=== PATIENT | female | born 2000 | race Caucasian/White ===

== ENCOUNTER 2024-05-12 13:27 | Outpatient (CLI) | payer OTHER, SELFPAY | END 2024-05-12 13:28 | disposition home or self-care (01) | LOC: NFLDREF 05-25 22:39 | DX: R10.31 Right lower quadrant pain (principal) | CPT/HCPCS: 87086 ==

== ENCOUNTER 2024-05-12 14:29 | Emergency (ER) | payer OTHER, SELFPAY ==
[2024-05-12 14:58] VITALS: BP 118/72; PULSE 75; RESP 18; TEMP 36.5; O2SAT 99; BMI 28.0
--- NOTE | 2024-05-12 15:18 | CRLHL7_ITS ---
For Patients: As a result of the Century Cures Act, medical imaging exams and procedure reports are released immediately into your electronic medical record. You may view this report before your referring provider. If you have questions, please contact your health care provider. INDICATION: RLQ PAIN, MID-ABDOMINAL PAIN TECHNIQUE: CT of the abdomen and pelvis was obtained with 88 mL of Isovue 370 intravenous contrast. Please note that all CT scans at this facility use dose modulation, iterative reconstruction, and/or weight-based dosing when appropriate to reduce radiation dose to as low as reasonably achievable. COMPARISON: None. FINDINGS: Lower thorax: Normal. Liver and biliary tree: Normal. Gallbladder: Normal. Spleen: Normal. Pancreas: Normal. Adrenal glands: Normal. Kidneys and ureters: No hydronephrosis. No obstructing renal calculi. Gastrointestinal tract: Normal appendix. Small to moderate stool burden. No evidence of bowel obstruction. Peritoneal cavity: Normal. Bladder: Normal. Pelvic organs: Normal. Vasculature: Normal. Lymph nodes: Normal. Abdominal wall: Normal. Musculoskeletal: Normal. IMPRESSION: 1. No acute intra-abdominal abnormality is seen. 2. Small to moderate stool burden. Please note that all CT scans at this facility use dose modulation, iterative reconstruction, and/or weight-based dosing when appropriate to reduce radiation dose to as low as reasonably achievable. Dictated by Nicola Restrepo MD @ 05/12/2024 4:31:34 PM (Electronically Signed)
--- NOTE | 2024-05-12 17:03 | ED.GENADULT ---
HPI - General Adult General Date Seen: 05/12/24 Chief complaint: Abdominal Pain Stated complaint: possible appendicitis Time Seen by Provider: 05/12/24 15:17 History of Present Illness HPI narrative: Patient is a 23-year-old young woman sent here from urgent care for evaluation of possible appendicitis. She tells me that she started developed nausea couple of days ago and then developed some abdominal pain yesterday that is primarily above her umbilicus but radiates a little bit to the right abdomen. She has had some continued nausea she says she has vomited a couple of times but it was just clear liquid. She has not had diarrhea, denies constipation, urinary symptoms, vaginal bleeding or discharge, new sexual partners. She says her periods are regular and last 1 was about 3 weeks ago. She notes fevers at home up to about 100. Denies sore throat or respiratory symptoms. Related Data Home Medications ?Medication ?Instructions ?Recorded ?Confirmed norelgestromin 150 mcg-e.estradiol 1 patch topical 05/12/24 05/12/24 35 mcg/24 hr weekly transderm patch (Xulane) Allergies Allergy/AdvReac Type Severity Reaction Status Date / Time No Known Drug Allergies Allergy Verified 05/12/24 15:49 Review of Systems Status of ROS: Reports: 10 or more systems reviewed and unremarkable except as noted in History and below [facility] Social History Non-prescribed substance use: denies use service: No Exam Narrative: Exam Narrative: Vital signs reviewed In general, alert, nontoxic young woman. She looks comfortable. Breathing easily. Head: Normocephalic, atraumatic. Eyes: Sclera clear. Pupils equal and reactive. ENT: Mucous membranes moist. Neck: Supple without adenopathy. Heart: Regular rate and rhythm without murmur. Lungs: Clear. No increased work of breathing, crackles or wheezes. No CVA tenderness. Abdomen: Abdomen is soft, nondistended. She does not have any tenderness to palpation although she says she has a little ?discomfort in the right mid abdomen. She does not have any tenderness at McBurney's point, negative Lopez sign. No rebound guarding or rigidity. Extremities: Well perfused, pulses intact. No significant edema. Neurologic: Alert, conversant. Speech fluent, face symmetric. Moves all extremities equally. Skin: Warm, dry well perfused. Affect: Flat. Const: Vital Signs, click to edit/add: Vital Signs - 24 hr 05/12/24 14:58 Temperature 97.7 F Pulse Rate [Pulse Oximeter] 75 Respiratory Rate 18 Blood Pressure [Ri ght Upper Arm] 118/72 Pulse Oximetry 99 Oxygen Delivery Me thod Room Air Documenting provider has reviewed patient's vital signs: yes Course Course ED Course: Patient was referred here from urgent care for rule out appendicitis. Based on her exam I do not have significant suspicion for appendicitis, blood work was done at Urgent Care, white blood cell count was mildly elevated. I did order a CT scan while she was in triage, based on report from Urgent Care, so this was done prior to my seeing her. My review of the CT scan is no evidence of appendicitis. Gallbladder looks normal, kidneys look normal. Radiology reads her CT as no acute abnormality, small to moderate stool burden. She had a UA at urgent care which was negative. She had a test which was negative. I have added on some labs here including COVID and influenza as well as strep given reported fevers at home. I have also checked LFTs, lipase, CRP. These are pending. She denies need for anything for pain or nausea right now. Labs are all normal here. I reviewed all of this with her. She is somewhat tearful, I asked her what was going on and she said she is ?just tired of feeling like this. She says the primary thing bothering her is the nausea. Reviewed that we can certainly treat that at home with Zofran as she does feel improved here with a dose of Zofran. If she continues to have significant symptoms would recommend primary care in the next few days to week. Reviewed reasons to return such as severe uncontrolled pain, new symptoms such as high fevers, bloody stools, uncontrolled vomiting or other worsening. I prescribed Zofran for home use from [facility]. Vital Signs Vital signs: Initial Vital Signs Temperature 97.7 F 05/12/24 14:58 Temperature Source Temporal Artery Scan 05/12/24 14:58 Pulse Rate 75 05/12/24 14:58 Pulse Rhythm Regular 05/12/24 14:58 Respiratory Rate 18 05/12/24 14:58 Blood Pressure 118/72 05/12/24 14:58 Blood Pressure Mean 87 05/12/24 14:58 Blood Pressure Position Sitting 05/12/24 14:58 Pulse Oximetry 99 05/12/24 14:58 Oxygen Delivery Method Room Air 05/12/24 14:58 Vital Signs Temperature 97.7 F 05/12/24 14:58 Pulse Rate 75 05/12/24 14:58 Respiratory Rate 18 05/12/24 14:58 Blood Pressure 118/72 05/12/24 14:58 Pulse Oximetry 99 05/12/24 14:58 Oxygen Delivery Method Room Air 05/12/24 14:58 Temperature 97.7 F 05/12/24 14:58 Pulse Rate 75 05/12/24 14:58 Respiratory Rate 18 05/12/24 14:58 Blood Pressure 118/72 05/12/24 14:58 Pulse Oximetry 99 05/12/24 14:58 Oxygen Delivery Method Room Air 05/12/24 14:58 Medications Administered Medications: Discontinued Medications Generic Name Dose Route Start Last Admin Trade Name Freq PRN Reason Stop Dose Admin Ondansetron HCl 4 mg 05/12/24 18:45 05/12/24 18:51 Ondansetron 2 Mg/Ml Inj IVP 05/12/24 18:46 4 mg ONCE ONE Administration Medical Decision Making Lab Data Labs: Lab Results 05/12/24 Range/Units 17:20 Sodium 133 L (135-149) mmol/L Potassium 3.9 (3.6-5.1) mmol/L Chloride 103 (96-114) mmol/L Carbon Dioxide 24 (20-32) mmol/L Anion Gap 6 L (7-15) mEq/L BUN 8 (5-24) mg/dL Creatinine 0.6 (0.5-1.5) mg/dL Estimated Creat Clear 140.60 Estimated GFR 128 ml/min Glucose 82 (60-115) mg/dL Calcium 9.1 (8.4-10.6) mg/dL Total Bilirubin 0.8 (0.1-1.5) mg/dL Direct Bilirubin 0.3 (0.0-0.5) mg/dL AST 18 (12-35) U/L ALT 12 (4-35) U/L Alkaline Phosphatase 100 (40-150) U/L C-Reactive Protein 1.2 H (0.5-1.0) mg/dL Total Protein 7.4 (6.0-8.3) g/dL Albumin 4.1 (3.3-5.0) g/dL Lipase 30 (23-300) U/L SARS-CoV-2 (PCR) Negative SARS-CoV-2 (Negative) Influenza Type A (PCR) Negative PCR FLU A (Negative) Influenza Type B (PCR) Negative PCR FLU B (Negative) RSV (PCR) Negative PCR RSV (Negative) Group A Strep DNA NOT DETECTED (Not Detectd) Imaging Data CT scan - abdomen: Attestation: I have reviewed the pertinent imaging results. Radiologist's impression: Patient: Carroll Lugo MR#: [id number] : 2000 Acct:[id number] Loc: ED Service Date: 05/12/[address]: Ordering Physician: Neelima Lopez M.D. Date of Service: 05/12/24 Procedure(s): CT abdomen pelvis w con Accession Number(s): [id number] cc: Neelima Lopez M.D.; Provider,Not a Local~ For Patients: As a result of the Cures Act, medical imaging exams and procedure reports are released immediately into your electronic medical record. You may view this report before your referring provider. If you have questions, please contact your health care provider. INDICATION: RLQ PAIN, MID-ABDOMINAL PAIN TECHNIQUE: CT of the abdomen and pelvis was obtained with 88 mL of Isovue 370 intravenous contrast. Please note that all CT scans at this facility use dose modulation, iterative reconstruction, and/or weight-based dosing when appropriate to reduce radiation dose to as low as reasonably achievable. COMPARISON: None. FINDINGS: Lower thorax: Normal. Liver and biliary tree: Normal. Gallbladder: Normal. Spleen: Normal. Pancreas: Normal. Adrenal glands: Normal. Kidneys and ureters: No hydronephrosis. No obstructing renal calculi. Gastrointestinal tract: Normal appendix. Small to moderate stool burden. No evidence of bowel obstruction. Peritoneal cavity: Normal. Bladder: Normal. Pelvic organs: Normal. Vasculature: Normal. Lymph nodes: Normal. Abdominal wall: Normal. Musculoskeletal: Normal. IMPRESSION: 1. No acute intra-abdominal abnormality is seen. 2. Small to moderate stool burden. Please note that all CT scans at this facility use dose modulation, iterative reconstruction, and/or weight-based dosing when appropriate to reduce radiation dose to as low as reasonably achievable. Dictated by Nicola Restrepo MD @ 05/12/2024 4:31:34 PM Discharge Plan Discharge Clinical Impression: Abdominal pain Patient Disposition: Home, Self-Care Condition: Stable Instructions: Abdominal Pain (ED) Additional Instructions: You can use Zofran up to 3 times a day as needed for nausea. If you are not improving over the next few days, follow-up with primary care. Our clinic number is [phone] if you would like to schedule with 1 of our doctors. If at any time you have severe uncontrolled pain, high fevers, uncontrolled vomiting, bloody stools or other worsening, return to the emergency department. Prescriptions: No Action norelgestromin-ethin.estradiol [Xulane] 150-35 mcg/24 hr patch weekly 1 patch topical Follow Up/Referrals: Provider,Not a Local [Primary Care Provider] - Stand Alone Forms: Complete [facility] Info Instructions
--- OUTSIDE RECORDS SUMMARY | 2024-05-12 17:07 | XMS_ITS | Clinical Summary ---
Author Organization [facility] Address [address] [place] [address] Care Team Providers Care Job Placement Specialist Name Role Phone Penelope Zaragoza DO Primary Care Provider Penelope Zaragoza DO Unavailable [phone] Source Comments [facility],non-owned Affiliates and Associated Physician Practices is amultiple site organization consisting of ambulatory clinics and hospital sitesin [place], [place], [place] and [place]. This disclosure is being madepursuant to the Care Everywhere program and may not contain all information available regarding this patient. Last updated 18.[facility] Allergies No known active allergies Medications * Be aware that medications may not be up to date on this document. Alwaysverify current medications with the patient. Medication Sig Dispensed Refills Start Date End Date Status SUMAtriptan (Imitrex) 100 MG tablet Take 1 tab by mouth once at first sign of migraine. May repeat one time after 2 hours if needed. 9 tablet 2 04/04/2023 Active cyclobenzaprine (Flexeril) 10 MG tablet Take 1 (one) tablet by mouth nightly as needed for Muscle Spasms 30 tablet 06/11/2023 Active Additional Information Patient not taking.Reported on 12/24/2023 Xulane 150-35 MCG/24HR patch APPLY 1 PATCH TO SKIN EVERY 7 DAYS 9 patch 04/27/2024 Active Xulane 150-35 MCG/24HR patch Apply 1 (one) patch to skin every [address] prescription on file until patient calls. 9 patch 5 04/04/2023 4 Discontinued Active Problems Problem Noted Date Diagnosed Date Encounter for surveillance of injectable contrac eptive 12/03/2018 Gastroesophageal reflux disease without esophagi tis 02/20/2017 Mild single current episode of major depressive disorder 03/18/2016 Anxiety 03/18/2016 Attention deficit hyperactivity disorder (ADHD) 01/10/2010 Resolved Problems Problem Noted Date Diagnosed Date Resolved Date Encounter for surveillance o f injectable contraceptive 06/12/2018 09/22/2018 Recurrent acute tonsillitis 01/13/2018 09/22/2018 Mononucleosis 11/19/2017 09/16/2018 Acute laryngitis 11/14/2017 09/16/2018 Dehydration 11/14/2017 12/20/2017 Sore throat 06/10/2017 09/16/2018 Oppositional defiant disorder 01/13/2012 09/22/2018 Encounters Date Type Department Care Team Description 04/26/2024 Refill [facility] [address] [place] [id number] Penelope Zaragoza, Refill Request from Last 3 Months Immunizations Name Administration Dates Next Due DTaP VACCINE IM (6wk-6yrs) 01/18/2005,,09/15/2000,05/20/2000, 1999 HEP B VACCINE, PED/ADOL 05/20/2000,1999, HIB-PRP-OMP 3 DOSE 12/26/2000,09/15/2000, 001,1999 MENINGOCOCCAL CONJUGATE (MCV4P) 11/30/2015 MMR 01/18/2005,09/15/2000 MMR-Historical 09/15/2000 PNEUMOCOCCAL PCV7 CONJ, PEDS 05/20/2000 POLIO IPV 12/26/2000,09/15/2000,05/20/2000 ,1999 TDAP (7yrs+) 04/17/2021,02/04/2011 Family History Medical History Relation Name Comments None Known Father Status: Alive Cancer - Breast Maternal Grandmother Diabetes Maternal Uncle Asthma Mother Status: Alive Cancer - Breast Mother Other Mother brain hemorrhag e Parkinson's Disease Other aunt Dementia Paternal Grandfather Parkinson's Disease Paternal Grandfather Asthma Sister 1 Status: Alive None Known Sister 2 Status: Alive None Known Sister 3 Status: Alive Relation Name Status Comments Father Maternal Grandmother Maternal Uncle Mother Alive Other aunt Alive Paternal Grandfather Sister 1 Sister 2 Sister 3 Social History Tobacco Use Types Packs/Day Years Used Date Smoking Tobacco: Never Smokeless Tobacco: Never Alcohol Use Standard Drinks/Week Comments Yes 0 (1 standard drink = 0.6 oz pur e alcohol) socially AUDIT-C Answer Date Recorded Q1: How often do you have a drink containing alc ohol? Monthly or less 01/19/2023 Average Number of Drinks Not on file 023 Frequency of Binge Drinking Not on file 12/28 PHQ-2 Answer Date Recorded Patient Health Questionnaire-2 Score 1 04/04/2023 Hunger Vital Sign Answer Date Recorded Within the past 12 months, y ou worried that your food would run out before you got the money to buy more. Never true 04/04/20 23 Within the past 12 months, t he food you bought just didn't last and you didn't have money to get more. Never true 04/04/2023 PRAPARE - Transportation Answer Date Re corded In the past 12 months, has l ack of transportation kept you from medical appointments or from getting medications? No 11/2022 In the past 12 months, has l ack of transportation kept you from meetings, work, or from getting things needed for daily living? No 04/04/2023 Housing Stability Vital Sign Answer e Recorded In the last 12 months, was t here a time when you were not able to pay the mortgage or rent on time? No 04/04/2023 In the last 12 months, how many places have you lived? 1 04/04/2023 In the last 12 months, was t here a time when you did not have a steady place to sleep or slept in a residential (including now)? No 04/04/2023 Sex and Gender Information Value Date Recorded Sex Assigned at Not on file Gender Identity Not on file Sexual Orientation Not on file Last Filed Vital Signs Vital Sign Reading Time Taken Comments Blood Pressure 100/70 12/24/2023 10:01 AM CDT Pulse 86 12/24/2023 10:01 AM CDT Temperature 36.6 C (97.8 F) 06/11/2023 4:36 PM SENIOR QUALITY MANAGER Respiratory Rate 18 12/24/2023 10:0 1 AM CDT Oxygen Saturation 98% 12/24/2023 10: 01 AM CDT Inhaled Oxygen Concentration - - Weight 80.2 kg (176 lb 12.8 oz) 024 10:01 AM CDT Height 166 cm (5' 5.35) 04/04/2023 2:31 PM SENIOR QUALITY MANAGER Body Mass Index 29.1 04/04/2023 2:31 PM SENIOR QUALITY MANAGER Plan of Treatment Health Maintenance Due Date Last Done Comments HIV SCREENING 09/10/2014 HPV VACCINE (1 - 3-dose series) 09/10/2014 HEPATITIS C SCREENING 09/06/2017 COVID-19 VACCINE ( season) 2023 INFLUENZA VACCINE (#1) 2023 CHLAMYDIA/GONORRHEA SCREENING 04/04/2024 04/04/2023, 09/22/2018 PAP SMEAR 04/04/2024 04/04/2023, 04/17/2021 DEPRESSION SCREENING 04/28/2024 04/04/2023 DTAP/TDAP/TD VACCINES (7 - Td or Tdap) 04/17/2031 04/17/2021, 02/04/2011, 01/18/2005, Additional history exists ZOSTER VACCINE (1 of 2) 09/10/2049 HEPATITIS B VACCINE Completed 05/20/2000, 1999, 1999 PNEUMOCOCCAL VACCINE Aged Out 05/20/2000 No long er eligible based on patient's age to complete this topic HIB VACCINE Completed 12/26/2000, 08/27, 05/20/2000, Additional history exists MENINGOCOCCAL VACCINE Completed 11/30/2015 MENINGOCOCCAL (Group B) VACCINE Aged Out No longer eligible based on patient's age to complete this topic Procedures Procedure Name Priority Date/Time Associated Diagnosis Comments PAP THINPREP REFLEX HPV ([place]) Routine 04/04/2023 2:30 PM SENIOR QUALITY MANAGER Cervical cancer screening CHLAMYDIA+GC AMPLIFIED PROBE ([facility]) Routine 04/04/2023 2:30 PM SENIOR QUALITY MANAGER Screening examination for STD (sexually transmitted disease) from Last 3 Months or Most Recently Relevant to Health Maintenance Results * CHLAMYDIA+GC AMPLIFIED PROBE ([facility]) (04/04/2023 2:30 PM SENIOR QUALITY MANAGER) Neisseria gonorrhoeae PCR NOT DETECTED NOT DETECTED 04/04/2023 6:55 PM SENIOR QUALITY MANAGER [facility] Chlamydia trachomatis PCR NOT DETECTED NOT DETECTED 04/04/2023 6:55 PM SENIOR QUALITY MANAGER [facility] Microbiology URINE / Unknown Collection / Unknown 04/04/2023 2:30 PM SENIOR QUALITY MANAGER 04/04/2023 3:09 PM SENIOR QUALITY MANAGER Narrative [facility] - 04/04/2023 6:55 PM SENIOR QUALITY MANAGER The assay is a qualitative in vitro real-time PCR test for the automated detection and differentiation of genomic DNA from Chlamydia trachomatis (CT) and/or Niesseria gonorrhoeae (NG) to aid in the diagnosis of chlamydial and gonorrheal urogenital disease. Collection and testing of urine specimens with this assay is not intended to replace cervical exam and endocervical sampling for diagnosis of urogenital infection. Other genitourinary tract infections can be caused by other infectious agents. Erroneous test results might occur from improper specimen collection, technical error, sample mix-up, or because the number of organisms are below the limit of detection of the test. This assay should not be used for the evaluation of suspected sexual abuse or for other medico-legal indications. Its performance has not been evaluated in patients less than 14 years of age, women, patients with a history of hysterectomy, or patients who are currently being treated with antimicrobial agents active against CT or NG. Penelope Zaragoza DO LAB - MICROBIOLOGY O RDERABLES [address] * PAP THINPREP REFLEX HPV ([place]) (04/04/2023 2:30 PM SENIOR QUALITY MANAGER) CASE REPORT Gynecologic Cytology Report Case: [id number] Authorizing Provider: Penelope Zaragoza DO Collected: 04/04/2023 02:30 PM Ordering Location: [facility] Received: 04/04/2023 03:09 PM [facility] First Screen: Wayne Booth CT(ASCP) Rescreen: Henry Santiago CT(ASCP) Specimen: THIN PREP PAP VIAL ([place]), Cervix/Endocervix 04/15/2023 10:22 AM [facility] LMP 03/27/2023 04/15/2023 10:22 AM [facility] Clinical History None Applicable 10:22 AM [facility] Specimen Adequacy Satisfactory for evaluation. Transformation zone component is present. 04/15/2023 10:22 AM [facility] Categorization Negative for intraepithelial lesion or malignancy. 04/15/2023 10:22 AM [facility] Interpretation Negative for intraepithelial lesion or malignancy. 04/15/2023 10:22 AM [facility] (S) Two ThinPrep slides were prepared and evaluated. One of the two slides was processed with Glacial Acetic Acid (GAA). 04/15/2023 10:22 AM [facility] Recommendations Clinical correlation recommended, with follow-up as directed by current ASCCP risk-based management consensus guidelines. 04/15/2023 10:22 AM [facility] Footnote Cervical cytology is a screening test with limited sensitivity. It is not a diagnostic procedure and should not be used as the sole means to detect cervical cancer, especially in patients with symptoms or an abnormal cervix. Regular screening is critical for cancer prevention. 04/15/2023 10:22 AM [facility] EMBEDDED IMAGES 10:22 AM [facility] Pathology/Cytolo gy MISCELLANEOUS SAMPLES / Unknown Collection / Unknown 04/04/2023 2:30 PM SENIOR QUALITY MANAGER 04/04/2023 3:09 PM SENIOR QUALITY MANAGER Penelope Zaragoza DO LAB - BODY FLUID ORD ERABLES [facility] [address] [place] [address], [facility] from Last 3 Months or Most Recently Relevant to Health Maintenance Care Teams Job Placement Specialist Relationship Specialty Start Date End Date Penelope Zaragoza DO [address] [place], [place] [id number] PCP - General 01/08/18 Penelope Zaragoza DO [address] [place], [place] [id number] PCP - Attributed-DHP Commercial 04/28/22
--- OUTSIDE RECORDS SUMMARY | 2024-05-12 17:08 | XMS_ITS | Encounter Summary ---
Author Organization [facility] Address [address] [place] [address] Care Team Providers Care Culturist Name Role Phone Penelope Zaragoza DO Primary Care Provider Penelope Zaragoza DO Unavailable [phone] Reason for Visit * Reason Comments Refill Request Encounter Details Date Type Department Care Team (Late st Contact Info) Description 04/26/2024 Refill [facility] - Family Medicine [address] [place] [phone] Penelope Zaragoza DO [address] [place] [address] Refill Request Social History Tobacco Use Types Packs/Day Years [...] place to sleep or slept in a detention (including now)? No 04/04/2023 Sex and Gender Information Value Date Recorded Sex Assigned at Not on file Gender Identity Not on file Sexual Orientation Not on file documented as of this encounter Miscellaneous Notes * Telephone Encounter - Emily De Jesus RN - 04/29/2024 7:37 AM CST Detailed message left for pt. Pt to call back with questions or concerns. PANEL HANGER * Telephone Encounter - Sana Busby LPN - 04/27/2024 9:24 AM SIDE PANEL HANGER Medication: Does not meet protocol Medication requires MD approval. Pharmacy via [facility] interface request today for refill of Xulane. Reason for taking: BC Last refill at pharmacy was 02/02/24 #9 with 0 refills Is this an early refill: No Last OV pertaining to medication was 04/04/23 Last labs if pertinent:not indicated Provider recommended follow up at last visit, if specified: 1 year Next OV with prescribing physician: nothing scheduled Prescription: should be e-prescribed to preferred pharmacy. Response to patient: Response by phone PANEL HANGER documented in this encounter Plan of Treatment Not on file documented as of this encounter Visit Diagnoses Not on filedocumented in this encounter Care Teams Culturist Relationship Specialty Start Date End Date Penelope Zaragoza DO [address] [place] [address] PCP - General 01/08/18 Penelope Zaragoza DO [address] [place] [address] PCP - Attributed-DHP Commercial 04/28/22 documented as of this encounter
--- OUTSIDE RECORDS SUMMARY | 2024-05-12 17:08 | XMS_ITS | Clinical Summary ---
Author Organization [facility] Address [id number] [address] Care Team Providers Care Shirt Sewer Name Role Phone No Primary/Referring, Phy Primary Care Provider Unavailable Source Comments You are receiving this document as you are listed as the primary care provider,follow-up provider, or the patient has been referred to you for consultation.This is in compliance with the Medicare and[facility] EHR Incentive Program,which states Providers who transition their patient to another setting of careor provider of care or refers their patient to another provider of care shouldprovide summary care record for each transition of care or referral. [email or web address] Allergies No known active allergies Social History Tobacco Use Types Packs/Day Years Used Date Smoking Tobacco: Never Assessed Humiliation, Afraid, Rape, and Kick questionnair e Answer Date Recorded Fear of Current or Ex-Partner Not on file Within the last year, have y ou been humiliated or emotionally abused in other ways by your partner or ex-partner? No 12/19/2023 Within the last year, have y ou been kicked, hit, slapped, or otherwise physically hurt by your partner or ex-partner? No 12/19/2023 Within the last year, have y ou been raped or forced to have any kind of sexual activity by your partner or ex-partner? No 12/19/2023 Sex and Gender Information Value Date Recorded Sex Assigned at Not on file Gender Identity Not on file Sexual Orientation Not on file Last Filed Vital Signs Vital Sign Reading Time Taken Comments Blood Pressure 108/67 12/20/2023 12:00 AM CDT Pulse 80 12/20/2023 12:00 AM CDT Temperature 36.7 C (98 F) 12/19/2023 9:07 PM CDT Respiratory Rate 18 12/20/2023 12:00 AM CDT Oxygen Saturation 98% 12/20/2023 12:00 AM CDT Inhaled Oxygen Concentration - - Weight - - Height - - Body Mass Index - - Plan of Treatment Health Maintenance Due Date Last Done Comments Cervical Cancer Screening Due 1999 Chlamydia 1999 Hep C Screening (Preventive Services) 1999 HPV Vaccine (1 - 3-dose series) 09/10/2014 HIV Screening (Preventive Services) 2015 Adult Preventive Visit 09/10/2017 DTaP/Tdap/Td (1 - Tdap) 09/10/2018 HepB (1) 09/10/2018 COVID-19 Vaccine (2023-2 5 season) 2023 Influenza (#1) 2023 Zoster/Shingles (1 of 2) 09/10/2049 HepA Aged Out No longer eligi ble based on patient's age to complete this topic Hib Aged Out No longer eligi ble based on patient's age to complete this topic IPV (Polio) Aged Out No longer eligi ble based on patient's age to complete this topic MCV4 Aged Out No longer eligi ble based on patient's age to complete this topic Pneumococcal Aged Out No longer eligi ble based on patient's age to complete this topic Care Teams Shirt Sewer Relationship Specialty Start Date End Date No Primary/Referring, Robbiey PCP - General 12/19/23
--- OUTSIDE RECORDS SUMMARY | 2024-05-12 17:08 | XMS_ITS | Patient Health Summary ---
Author Organization [facility] Address [address] [place] [address] Care Team Providers Care Treatment Specialist Name Role Phone Penelope Zaragoza DO Primary Care Provider [phone] Penelope Zaragoza DO Unavailable [phone] Note from [facility],non-owned Affiliates and Associated Physician Practices is amultiple site organization consisting of ambulatory clinics and hospital sitesin [place], [place], [place] and [place]. This disclosure is being madepursuant to the Care Everywhere program and may not contain all information available regarding this patient. Last updated 18.[facility] Allergies No known active allergies Medications * Be aware that medications may not be up to date on this document. Alwaysverify current medications with the patient. * SUMAtriptan (Imitrex) 100 MG tablet(Started 04/04/2023) Take 1 tab by mouth once at first sign of migraine. May repeat one time after 2 hours if needed. 2 refills by 04/03/2024 * cyclobenzaprine (Flexeril) 10 MG tablet(Started 06/11/2023) Take 1 (one) tablet by mouth nightly as needed for Muscle Spasms * Xulane 150-35 MCG/24HR patch(Started 04/27/2024) APPLY 1 PATCH TO SKIN EVERY 7 DAYS Ended Medications* Xulane 150-35 MCG/24HR patch(Started 04/04/2023)(Discontinued) Apply 1 (one) patch to skin every [address] prescription on file until patient calls. 5 refills by 04/03/2024 Active Problems Problem Noted Date Diagnosed Date [...] 06/10/2017 09/16/2018 Oppositional defiant disorder 01/13/2012 09/22/2018 Immunizations * DTaP VACCINE IM (6wk-6yrs)(Given 01/18/2005, 12/26/2000, 09/15/2000, 05/20/2000, 1999) * HEP B VACCINE, PED/ADOL(Given 05/20/2000, 1999, 1999) * HIB-PRP-OMP 3 DOSE(Given 12/26/2000, 09/15/2000, 05/20/2000, 1999) * MENINGOCOCCAL CONJUGATE (MCV4P)(Given 11/30/2015) * MMR(Given 01/18/2005, 09/15/2000) * MMR-Historical(Given 09/15/2000) * PNEUMOCOCCAL PCV7 CONJ, PEDS(Given 05/20/2000) * POLIO IPV(Given 12/26/2000, 09/15/2000, 05/20/2000, 1999) * TDAP (7yrs+)(Given 04/17/2021, 02/04/2011) Social History Tobacco Use Types Packs/Day Years [...] place to sleep or slept in a mcc (including now)? No 04/04/2023 Sex and Gender Information Value Date Recorded Sex Assigned at Not on file Gender Identity Not on file Sexual Orientation Not on file Last Filed Vital Signs Vital Sign Reading Time Taken Comments Blood Pressure 100/70 12/24/2023 10:01 AM CDT Pulse 86 12/24/2023 10:01 AM CDT Temperature 36.6 C (97.8 F) 06/11/2023 4:36 PM ADULT PSYCHIATRIST Respiratory Rate 18 12/24/2023 10:0 1 AM CDT Oxygen Saturation 98% 12/24/2023 10: 01 AM CDT Inhaled Oxygen Concentration - - Weight 80.2 kg (176 lb 12.8 oz) 024 10:01 AM CDT Height 166 cm (5' 5.35) 04/04/2023 2:31 PM ADULT PSYCHIATRIST Body Mass Index 29.1 04/04/2023 2:31 PM ADULT PSYCHIATRIST Procedures * ECHO COMPLETE(Performed 01/16/2024) Performed for Syncope, unspecified syncope type * HOLTER MONITOR(Performed 01/05/2024) Performed for Syncope, unspecified syncope type * URINALYSIS REFLEX MICROSCOPIC REFLEX CULTURE(Performed 12/24/2023) Performed for Syncope, unspecified syncope type * HEMOGLOBIN A1C(Performed 12/24/2023) Performed for Syncope, unspecified syncope type * TSH REFLEX FREE T4(Performed 12/24/2023) Performed for Syncope, unspecified syncope type * COMPREHENSIVE METABOLIC PANEL(Performed 12/24/2023) Performed for Syncope, unspecified syncope type * HCG URINE QUALITATIVE(Performed 12/24/2023) Performed for Syncope, unspecified syncope type * CBC W AUTO DIFFERENTIAL(Performed 12/24/2023) Performed for Syncope, unspecified syncope type * CULTURE URINE(Performed 12/24/2023) Performed for Syncope, unspecified syncope type * PAP THINPREP REFLEX HPV ([place])(Performed 04/04/2023) Performed for Cervical cancer screening * CHLAMYDIA+GC AMPLIFIED PROBE ([facility])(Performed 04/04/2023) Performed for Screening examination for STD (sexually transmitted disease) * XR NASAL BONES(Performed 01/19/2023) Performed for Laceration of nose, initial encounter * STREP A SCREEN DNA PROBE(Performed 06/17/2022) Performed for Sore throat * SARS-COV-2 (COVID-19) FLU A/B RSV PCR RAPID(Performed 06/17/2022) Performed for Acute cough * PAP THINPREP REFLEX HPV ([place])(Performed 04/17/2021) Performed for Cervical cancer screening * SARS-COV-2 (COVID-19) IN HOUSE(Performed 02/27/2021) Performed for Acute viral syndrome * CBC W AUTO DIFFERENTIAL(Performed 05/08/2020) Performed for Lymphadenopathy * MONONUCLEOSIS SCREEN(Performed 05/08/2020) Performed for Lymphadenopathy * SARS-COV-2 (COVID-19) EXACT SCIENCES(Performed 04/24/2020) Performed for Sore throat, Sweating fever * CULTURE THROAT(Performed 04/24/2020) Performed for Sore throat * STREP A SCREEN DIRECT(Performed 04/24/2020) Performed for Sore throat * CHLAMYDIA + GC AMPLIFIED PROBE UROGENITAL(Performed 09/22/2018) Performed for Encounter for pre-school health examination * VARICELLA ZOSTER ANTIBODY IGG(Performed 09/22/2018) Performed for History of chicken pox * CT ABDOMEN PELVIS W CONTRAST(Performed 08/04/2018) Performed for Abdominal pain, right lower quadrant * LIPASE BLOOD(Performed 08/04/2018) * LACTIC ACID BLOOD(Performed 08/04/2018) * COMPREHENSIVE METABOLIC PANEL(Performed 08/04/2018) * CBC W AUTO DIFFERENTIAL(Performed 08/04/2018) * HCG URINE QUALITATIVE(Performed 08/04/2018) * URINALYSIS REFLEX TO MICROSCOPIC NO CULTURE(Performed 08/04/2018) * XR CHEST 2VW(Performed 08/03/2018) Performed for Positive PPD * HCG URINE QUALITATIVE(Performed 06/05/2018) Performed for Possible * BIOPSY TISSUE PANEL(Performed 01/13/2018) * HCG URINE QUALITATIVE(Performed 01/13/2018) * COMPREHENSIVE METABOLIC PANEL(Performed 11/18/2017) * CBC W AUTO DIFFERENTIAL(Performed 11/18/2017) * DIFFERENTIAL MANUAL(Performed 11/18/2017) * CT NECK SOFT TISSUE W CONT(Performed 11/14/2017) * COMPREHENSIVE METABOLIC PANEL(Performed 11/14/2017) * CBC W/O DIFFERENTIAL(Performed 11/14/2017) * MONONUCLEOSIS SCREEN(Performed 11/14/2017) * STREP A SCREEN DIRECT(Performed 11/13/2017) * CULTURE THROAT(Performed 11/13/2017) * CULTURE THROAT(Performed 06/10/2017) * STREP A SCREEN DIRECT(Performed 06/10/2017) * URINALYSIS REFLEX TO MICROSCOPIC NO CULTURE(Performed 02/20/2017) * CULTURE URINE(Performed 02/20/2017) * CT HEAD WO CONTRAST(Performed 08/21/2016) * STREP A SCREEN DIRECT(Performed 06/02/2015) * CULTURE THROAT(Performed 06/02/2015) * XR FINGERS LEFT 2VW OR MORE(Performed 02/27/2015) * XR WRIST LEFT 3VW OR MORE(Performed 09/05/2014) Results * ECHO COMPLETE (01/16/2024 2:03 PM CDT) Linked Results See Linked CV PACS Result [facility] RADIOLOGY Anatomical Region Laterality Modality Chest Ultrasound 01/16/2024 1:29 PM CDT Penelope Zaragzoa DO ECHOCARDIOGRAPHY RAD IANT * HOLTER MONITOR (01/05/2024 11:59 PM CDT) Narrative [facility] [employer] - 01/05/2024 11:59 PM CDT Penelope Zaragoza DO 01/22/2024 4:13 PM Patient monitored for 6 days and 23 hours. Primary rhythm was sinus. Average heart rate was 77. Minimum heart rate was 49 and maximum heart rate was 141. No atrial fibrillation, flutter, pauses, blocks or ventricular arrhythmias noted. SVE burden and PVC burden was low. Did have 1 supraventricular arrhythmia that lasted for 3 beats. Patient recorded 7 total events during monitoring. Patient was in sinus rhythm during these events. Overall normal Holter monitor with no major concerns noted. Penelope Zaragoza DO Penelope Zaragoza DO CARDIAC SERVICES ORD ERABLES [facility] [employer] [employer] * (ABNORMAL) URINALYSIS REFLEX MICROSCOPIC REFLEX CULTURE (12/24/2023 10:40 AM CDT) Color YELLOW YELLOW 12/24/2023 12:29 PM CDT [facility] Clarity SLIGHTLY CLOUDY(A) CLEAR 12/24/2023 12:29 PM CDT [facility] Glucose Qualitative Urine NEGATIVE NEGATIVE 12/24/2023 12:29 PM CDT [facility] Bilirubin Urine NEGATIVE NEGATIVE 12:29 PM CDT [facility] Ketone Urine NEGATIVE NEGATIVE 12/24/2023 12:29 PM CDT [facility] Specific [place] Urine 1.020 1.005, <=1.005, 1.010, 1.015, 1.020, 1.025, 1.030 12/24/2023 12:29 PM CDT [facility] Blood Urine TRACE(A) NEGATIVE 12/24/2023 12:29 PM CDT [facility] pH Urine 7.0 5.0 - 8.0 12/24/2023 12:29 PM CDT [facility] Protein Qualitative Urine NEGATIVE NEGATIVE 12/24/2023 12:29 PM CDT [facility] Urobilinogen 1.0 0.2, 1.0 E.U./dL 12/24/2023 12:29 PM CDT [facility] Nitrite Urine NEGATIVE NEGATIVE 12/24/2023 12:29 PM CDT [facility] Leukocyte Esterase 3+(A) NEGATIVE 12/24/2023 12:29 PM CDT [facility] WBC Urine 25-50(A) ABSENT, RARE, OCCASIONAL /HPF 12/24/2023 12:29 PM CDT [facility] RBC Urine OCCASIONAL ABSENT, RARE, OCCASIONAL /HPF 12/24/2023 12:29 PM CDT [facility] Epithelial Cells Urine MANY(A) ABSENT, RARE, OCCASIONAL /LPF 12/24/2023 12:29 PM CDT [facility] Bacteria Urine POSITIVE(A) NEGATIVE 12:29 PM CDT [facility] Urine MID-STREAM URINE SPECIMEN / Unknown Collection / Unknown 12/24/2023 10:40 AM CDT 12/24/2023 10:45 AM CDT Penelope Zaragoza DO LAB - URINALYSIS ORD ERABLES [facility] [address] [facility] [address] [place] [address] * TSH REFLEX FREE T4 (12/24/2023 10:40 AM CDT) [facility] TSH 2.11 0.35 - 4.94 uIU/mL 12/24/2023 12:39 PM CDT [facility] Blood BLOOD SPECIMEN / Unknown Lab Venipuncture / Unknown 12/24/2023 10:40 AM CDT 12/24/2023 10:45 AM CDT Penelope Zaragoza DO LAB - CHEMISTRY ORDE RABLES [address] * HCG URINE QUALITATIVE (12/24/2023 10:40 AM CDT) Only the most recent of4 resultswithin the time period is included. Pathologist [facility] Test Urine NEGATIVE 12/24/2023 10:50 AM CDT [facility] Comment:False negative resul ts may occur when levels of HCG are below the sensitivity of the test. Recommend retesting within 48-72 hours with a first morning specimen if is still suspected. Urine URINE / Unknown Collection / Unknown 12/24/2023 10:40 AM CDT 12/24/2023 10:45 AM CDT Penelope Zaragoza DO LAB - URINALYSIS ORD ERABLES [facility] [address] [place] [address] * HEMOGLOBIN A1C (12/24/2023 10:40 AM CDT) Hemoglobin A1C 4.7 4.0 - 5.6 % 12/24/2023 12:30 PM CDT [facility] Estimated Average Glucose 88 mg/dL 12/24/2023 12:30 PM CDT [facility] Blood BLOOD SPECIMEN / Unknown Lab Venipuncture / Unknown 12/24/2023 10:40 AM CDT 12/24/2023 10:45 AM CDT Penelope Zaragoza DO LAB - CHEMISTRY ORDE RABLES Performing Organization Address [facility] Co de Phone Number [address] * CULTURE URINE (12/24/2023 10:40 AM CDT) Only the most recent of2 resultswithin the time period is included. Pathologist [facility] Culture Urine 10,000 CFU/mL mixed west - Probable contaminants - No further identification 12/25/2023 10:58 AM CDT [facility] Urine MID-STREAM URINE SPECIMEN / Unknown Collection / Unknown 12/24/2023 10:40 AM CDT 12/24/2023 10:45 AM CDT Penelope Zaragoza DO LAB - MICROBIOLOGY O RDERABLES Performing Organization Address City/[facility]/ZIP Co de Phone Number [address] [place] * (ABNORMAL) CBC W/ DIFFERENTIAL (12/24/2023 10:40 AM CDT) Only the most recent of4 resultswithin the time period is included. WBC 10.4 3.5 - 11.0 10E3/uL 12/24/2023 12:03 PM CDT [facility] RBC 4.68 3.80 - 5.40 10E6/uL 12/24/2023 12:03 PM CDT [facility] Hemoglobin 14.1 11.9 - 16.0 g/dL 12/24/2023 12:03 PM T [facility] Hematocrit 41.8 35.0 - 47.0 % 12/24/2023 12:03 PM T [facility] MCV 89 80 - 100 fL 12/24/2023 12:03 PM T [facility] MCH 30.1 26.0 - 34.0 PG 12/24/2023 12:03 PM T [facility] MCHC 33.7 31.0 - 37.0 g/dL 12/24/2023 12:03 PM T [facility] RDW 12.2 11.5 - 14.5 % 12/24/2023 12:03 PM T [facility] Platelet Count 334 150 - 450 10E3/uL 12/24/2023 12:03 PM [facility] MPV 10.6(H) 6.5 - 10.0 FL 12/24/2023 12:03 PM T [facility] Neutrophils % 75.6(H) 44.0 - 75.0 % 12/24/2023 12:03 PM T [facility] Lymphocytes % 19.3 17.0 - 45.0 % 12/24/2023 12:03 PM T [facility] Monocytes % 3.6(L) 4.0 - 13.0 % 12/24/2023 12:03 PM T [facility] Eosinophils % 0.8 0.0 - 7.0 % 12/24/2023 12:03 PM T [facility] Basophils % Relative 0.4 0.0 - 1.0 % 12/24/2023 12:03 PM T [facility] Neutrophils Absolute 7.9(H) 1.7 - 7.6 10E3/uL 12/24/2023 12:03 PM CDT [facility] Lymphocytes Absolute 2.0 0.9 - 3.4 10E3/uL 12/24/2023 12:03 PM CDT [facility] Monocytes Absolute 0.4 0.3 - 0.9 10E3/uL 12/24/2023 12:03 PM CDT [facility] Eosinophils Absolute 0.1 0.0 - 0.7 10E3/uL 12/24/2023 12:03 PM CDT [facility] Basophils Absolute 0.0 0.0 - 0.1 10E3/uL 12/24/2023 12:03 PM CDT [facility] Immature Granulocytes % 0.3 0.0 - 1.0 % 12/24/2023 12:03 PM CDT [facility] Immature Granulocytes Absolute 0.0 X(10)3 12/24/2023 12:03 PM CDT [facility] Blood BLOOD SPECIMEN / Unknown Lab Venipuncture / Unknown 12/24/2023 10:40 AM CDT 12/24/2023 10:45 AM CDT Penelope Zaragoza DO LAB - HEMATOLOGY ORD ERABLES [address] * COMPREHENSIVE METABOLIC PANEL (12/24/2023 10:40 AM CDT) Only the most recent of4 resultswithin the time period is included. Sodium 136 136 - 145 mmol/L 12/24/2023 12:13 PM CDT [facility] Potassium 4.2 3.5 - 5.1 mmol/L 12/24/2023 12:13 PM CDT [facility] Chloride 104 98 - 107 mmol/L 12/24/2023 12:13 PM CDT [facility] CARBON DIOXIDE 26 22 - 29 mmol/L 12/24/2023 12:13 PM T [facility] Anion Gap 6 3 - 11 mmol/L 12/24/2023 12:13 PM T [facility] Glucose Nonfasting 93 70 - 99 mg/dL 12/24/2023 12:13 PM T [facility] BUN 7 7 - 19 mg/dL 12/24/2023 12:13 PM CDT [facility] Creatinine 0.71 0.57 - 1.11 mg/dL 12/24/2023 12:13 PM CDT [facility] AST 9 5 - 34 U/L 12/24/2023 12:13 PM CDT [facility] ALT 9 0 - 55 U/L 12/24/2023 12:13 PM CDT [facility] Bilirubin Total 0.4 0.2 - 1.2 mg/dL 12/24/2023 12:13 PM CDT [facility] Protein Total 6.8 6.4 - 8.3 g/dL 12/24/2023 12:13 PM CDT [facility] Albumin 3.6 3.5 - 5.2 g/dL 12/24/2023 12:13 PM CDT [facility] Calcium 8.8 8.4 - 10.5 mg/dL 12/24/2023 12:13 PM CDT [facility] GFR >90 >=60 mL/min/1.7 3m2 12/24/2023 12:13 PM CDT [facility] Alkaline Phosphatase 87 40 - 150 U/L 12/24/2023 12:13 PM CDT [facility] Blood BLOOD SPECIMEN / Unknown Lab Venipuncture / Unknown 12/24/2023 10:40 AM CDT 12/24/2023 10:45 AM CDT [facility] - 12/24/2023 12:13 PM CDT The GFR result was calculated using the updated CKD-EPI Creatinine Equation (2020). Penelope Zaragoza DO LAB - CHEMISTRY HERLINDA DUMONT [facility] Organization Address City/State/ZIP Co de Phone Number [address] * CHLAMYDIA+GC AMPLIFIED PROBE ([facility]) (04/04/2023 2:30 PM ADULT PSYCHIATRIST) Neisseria gonorrhoeae PCR NOT DETECTED NOT DETECTED 04/04/2023 6:55 PM ADULT PSYCHIATRIST [facility] Chlamydia trachomatis PCR NOT DETECTED NOT DETECTED 04/04/2023 6:55 PM ADULT PSYCHIATRIST [facility] Microbiology URINE / Unknown Collection / Unknown 04/04/2023 2:30 PM ADULT PSYCHIATRIST 04/04/2023 3:09 PM ADULT PSYCHIATRIST Narrative [facility] - 04/04/2023 6:55 PM ADULT PSYCHIATRIST The assay is a qualitative in vitro [...] Zaragoza DO LAB - MICROBIOLOGY O RDERABLES [place] [id number] * PAP THINPREP REFLEX HPV ([place]) (04/04/2023 2:30 PM ADULT PSYCHIATRIST) Only the most recent of2 resultswithin the time period is included. CASE REPORT Gynecologic Cytology Report Case: [id number] Authorizing Provider: Penelope Zaragoza DO Collected: 04/04/2023 02:30 PM Ordering Location: [facility] Received: 04/04/2023 03:[address] [facility] ([place], [place]) First Screen: Wayne Booth CT(ASCP) Rescreen: Henry Santiago CT(ASCP) Specimen: THIN PREP PAP VIAL ([place]), Cervix/Endocervix 04/15/2023 10:22 AM [facility] LMP 03/27/2023 04/15/2023 10:22 AM ADULT PSYCHIATRIST [facility] Clinical History None Applicable 10:22 AM [facility] Specimen Adequacy Satisfactory for evaluation. Transformation zone component is present. 04/15/2023 10:22 AM [facility] Categorization Negative for intraepithelial lesion or malignancy. 04/15/2023 10:22 AM [facility] Interpretation Negative for intraepithelial lesion or malignancy. 04/15/2023 10:22 AM [facility] (S) Two ThinPrep slides were prepared and evaluated. One of the two slides was processed with Glacial Acetic Acid (GAA). 04/15/2023 10:22 AM [facility] Recommendations Clinical correlation recommended, with follow-up as directed by current ASCCP risk-based management consensus guidelines. 04/15/2023 10:22 AM [facility] Footnote Cervical cytology is a screening test with limited sensitivity. It is not a diagnostic procedure and should not be used as the sole means to detect cervical cancer, especially in patients with symptoms or an abnormal cervix. Regular screening is critical for cancer prevention. 04/15/2023 10:22 AM [facility] EMBEDDED IMAGES 10:22 AM [facility] Pathology/Cytolo gy MISCELLANEOUS SAMPLES / Unknown Collection / Unknown 04/04/2023 2:30 PM ADULT PSYCHIATRIST 04/04/2023 3:09 PM ADULT PSYCHIATRIST Penelope Zaragoza DO LAB - BODY FLUID ORD ERABLES Performing Organization Address City/State/[facility] Co de Phone Number [facility] [address] [place] [address] * XR NASAL BONES (01/19/2023 9:26 PM CDT) Anatomical Region Laterality Modality Head Radiographic Zulema ging 01/19/2023 9:33 PM CDT Impressions 01/19/2023 9:35 PM CDT FINDINGS/IMPRESSION: Within sensitivity limits of facial bone radiographs, no radiographic evidence of an acute, displaced fracture. Paranasal sinuses are grossly clear. Reading Radiologist - Marcus Mendiola Releasing Radiologist - Marcus Mendiola Dictation Date Time - 01/19/2023 21:33 CDT Signed Date Time - 01/19/2023 21:35 CDT Benefits Clerk - NA Narrative 01/19/2023 9:35 PM CDT XR NASAL BONES, 01/19/2023 9:28 PM CDT, [facility] INDICATION: S01.21XA Laceration of nose, initial encounter ADDITIONAL CLINICAL INFORMATION: Ordering Provider Reason For Exam: Technologist Note: hit in face with metal piece of dog kennel, laceration/pain to bridge of nose Additional: None COMPARISON: None available at the time of dictation. Procedure Note Marcus Mendiola MD - 01/19/2023 XR NASAL BONES, 01/19/2023 9:28 PM CDT, [facility] INDICATION: S01.21XA Laceration of nose, initial encounter ADDITIONAL CLINICAL INFORMATION: Ordering Provider Reason For Exam: Technologist Note: hit in face with metal piece of dog kennel,laceration/pain to bridge of nose Additional: None COMPARISON: None available at the time of dictation. FINDINGS/IMPRESSION: Within sensitivity limits of facial bone radiographs, no radiographicevidence of an acute, displaced fracture. Paranasal sinuses are grossly clear. Reading Radiologist - Marcus Mendiola Releasing Radiologist - Marcus Mendiola Dictation Date Time - 01/19/2023 21:33 CDT Signed Date Time - 01/19/2023 21:35 CDT Benefits Clerk - NA Neville Borden PA-C DIAGNOSTIC I MAGING ORDERABLES * STREP A SCREEN DNA PROBE (06/17/2022 2:15 PM ADULT PSYCHIATRIST) Group A Strep PCR NEGATIVE NEGATIVE 023 2:17 PM ADULT PSYCHIATRIST [facility] Comment: The ID NOW Strep A assay cannot differentiate between viable and non-viable organisms and therefore should not be used for monitoring treatment of pharyngitis caused by Group A Strep. Specimen is negative for Group A Strep. If symptoms persist, consider throat culture. Microbiology ENTIRE THROAT (SURFACE REGION OF NECK) / Unknown Collection / Unknown 06/17/2022 2:15 PM ADULT PSYCHIATRIST 06/17/2022 2:16 PM ADULT PSYCHIATRIST Emily Welch APRN-CURATOR [facility] - [facility] OLOGY ORDERABLES Performing Organization Address City/[facility]/ZIP Co de Phone Number [facility] [address] [place] [address] * SARS-COV-2 (COVID-19) FLU A/B RSV PCR RAPID (06/17/2022 9:02 AM ADULT PSYCHIATRIST) SARS-COV-2 PCR Negative Negative 06/17/2022 10:52 AM ADULT PSYCHIATRIST [facility] Influenza A PCR Negative Negative, Invalid 06/17/2022 10:52 AM ADULT PSYCHIATRIST [facility] Influenza B PCR Negative Negative, Invalid 06/17/2022 10:52 AM ADULT PSYCHIATRIST [facility] RSV PCR Negative Negative, Invalid 06/17/2022 10:52 AM ADULT PSYCHIATRIST [facility] Microbiology SPECIMEN FROM NASOPHARYNGEAL STRUCTURE / Unknown Collection / Unknown 06/17/2022 9:02 AM ADULT PSYCHIATRIST 06/17/2022 9:22 AM ADULT PSYCHIATRIST Emily Welch APRN-[facility] - [facility] OLOGY ORDERABLES Performing Organization Address City/[facility]/ZIP Co de Phone Number [address] * SARS-COV-2 (COVID-19) INTERNAL (02/27/2021 4:10 PM CDT) SARS-COV-2 PCR Negative Negative 02/27/2021 4:38 PM CDT [facility] Microbiology SPECIMEN FROM NASAL FOSSAE / Unknown Collection / Unknown 02/27/2021 4:10 PM CDT 02/27/2021 4:11 PM CDT Narrative [facility] - 02/27/2021 4:38 PM CDT Negative results do not preclude SARS-CoV-2 infection and should not be used as the sole basis for patient management decisions. Negative results must be combined with clinical observations, patient history, and epidemiological information. Britney Perkins PA-C LAB - MICROBIOLOGY ORDERABLES Performing Organization Address City/[facility]/ZIP Co de Phone Number [address] * MONONUCLEOSIS SCREEN (05/08/2020 4:36 PM ADULT PSYCHIATRIST) Only the most recent of2 resultswithin the time period is included. Thayer Spot NEGATIVE NEGATIVE 05/08/2020 5:04 PM ADULT PSYCHIATRIST [facility] Blood BLOOD SPECIMEN / Unknown Lab Venipuncture / Unknown 05/08/2020 4:36 PM ADULT PSYCHIATRIST 05/08/2020 4:36 PM ADULT PSYCHIATRIST Christina Chang APNP-CURATOR [employer] [facility] LAB - CHEMISTRY HERLINDA DUMONT [address] * SARS-COV-2 (COVID-19) Power [employer]s (04/24/2020 3:45 PM ADULT PSYCHIATRIST) Pathologist [facility] SARS-CoV-2 RNA Negative Negative 04/25/2020 5:21 AM ADULT PSYCHIATRIST [employer] ([facility]) Microbiology SPECIMEN FROM [facility] / Unknown Collection / Unknown 04/24/2020 3:45 PM ADULT PSYCHIATRIST 04/24/2020 4:14 PM ADULT PSYCHIATRIST Narrative [employer] ([facility]) - 04/25/2020 5:21 AM ADULT PSYCHIATRIST SARS-CoV-2 (COVID-19) RNA NOT detected. Negative results do not preclude SARS-CoV-2 (COVID-19) infection and should not be used as the sole basis for treatment or other patient management decisions. TEST DESCRIPTION: The test is an [employer]-developed real-time RT-PCR test intended for the qualitative detection of nucleic acid from COVID19 in respiratory specimens. The assay is composed of two principal steps: (1) extraction of total nucleic acid (DNA and RNA) from patient specimens, (2) one-step reverse all round logger and PCR amplification with COVID19 N gene and human RPP30 (RP) gene transcripts with specific primers and probes. Results are for the detection of SARS-CoV-2 RNA. Positive results are indicative of the presence of SARS-CoV-2. Clinical correlation with patient history and other diagnostic information is necessary to determine patient infection status. Positive results do not rule out bacterial infection or co-infection with other viruses. The agent detected may not be the definite cause of disease. The laboratory may be required to report positive results to the appropriate public health authority. Negative results do not preclude SARS-CoV-2 infection and should not be used as the sole basis for patient management decisions. Negative results must be combined with clinical observations, patient history and epidemiological information. Nasal spray or allergy nasal spray may interfere with detection of low viral loads near the limit of detection and may result in false negative. DISCLAIMER: This test was developed and its performance characteristics determined by [employer], [employer]. It has not been cleared or approved by the US Food and Drug Administration (FDA). The FDA does not require this test to go through premarket FDA review. This test is used for clinical purposes. It should not be regarded as investigational or for research. [employer] is certified under the Clinical Laboratory Improvement Amendments (CLIA) and qualified to perform high complexity clinical laboratory testing. Emily Welch APRNCURATOR ZOOLOGICAL MUSEUM [facility] - [employer] [facility] [employer] ORDERABLES Performing Organization Address [facility]/ZIP Co de Phone Number [employer] ([facility]) [address], [place] [address] [phone] * RAPID STREP A (04/24/2020 2:57 PM ADULT PSYCHIATRIST) Only the most recent of4 resultswithin the time period is included. Rapid Strep A NEGATIVE 04/24/2020 3:06 PM ADULT PSYCHIATRIST [facility] Microbiology ENTIRE THROAT (SURFACE REGION OF NECK) / Unknown Collection / Unknown 04/24/2020 2:57 PM ADULT PSYCHIATRIST 04/24/2020 3:02 PM ADULT PSYCHIATRIST Emily Welch APRNINSIGHT [facility] ORDERABLES Performing Organization Address City/[facility]/ZIP Co de Phone Number [facility] [address] [place] [address] * CULTURE THROAT (04/24/2020 2:57 PM ADULT PSYCHIATRIST) Only the most recent of4 resultswithin the time period is included. Culture Throat Negative for beta-hemolytic Streptococcus Group A 04/26/2020 8:31 AM ADULT PSYCHIATRIST [facility] Microbiology ENTIRE THROAT (SURFACE REGION OF NECK) / Unknown Collection / Unknown 04/24/2020 2:57 PM ADULT PSYCHIATRIST 04/24/2020 3:02 PM ADULT PSYCHIATRIST Emily Welch APRN-CURATOR ZOOLOGICAL MUSEUM LAB - MICROBI OLOGY ORDERABLES Performing Organization Address [facility]/ZIP Co de Phone Number [address] * (ABNORMAL) CHLAMYDIA + GC PROBE AMPLIFIED ([place]) (09/22/2018 1:22 PM CDT) Neisseria gonorrhoeae PCR NOT DETECTED NOT DETECTED 09/22/2018 4:49 PM CDT [facility] Chlamydia trachomatis PCR DETECTED(A) NOT DETECTED 09/22/2018 4:49 PM CDT [facility] Microbiology URINE / Unknown Collection / Unknown 09/22/2018 1:22 PM CDT 09/22/2018 1:22 PM CDT Narrative [facility] - 09/22/2018 4:49 PM CDT The assay is a qualitative in vitro [...] antimicrobial agents active against CT or NG. Georgette Barrow APRN-CURATOR ZOOLOGICAL MUSEUM LAB - M ICROBIOLOGY ORDERABLES Performing Organization Address [facility] Co de Phone Number [address] * VARICELLA ZOSTER ANTIBODY IGG (09/22/2018 1:20 PM CDT) Varicella zoster Antibody IgG IMMUNE IMMUNE 09/23/2018 4:27 PM CDT [facility] Blood BLOOD SPECIMEN / Unknown Lab Venipuncture / Unknown 09/22/2018 1:20 PM CDT 09/22/2018 1:22 PM CDT Narrative [facility] - 09/23/2018 4:27 PM CDT IgG Antibody detected. Georgette Barrow JANITOR HELPER-CURATOR ZOOLOGICAL MUSEUM LAB - C HEMISTRY ORDERABLES [facility] [address] * CT ABDOMEN PELVIS W CONTRAST (08/04/2018 2:06 PM CDT) Anatomical Region Laterality Modality Abdomen, Pelvis Computed Tomogra phy 08/04/2018 2:19 PM CDT Impressions 08/04/2018 2:25 PM CDT IMPRESSION: 1. No evidence of acute intra-abdominal or pelvic disease process. Specifically, there is no evidence of bowel obstruction or appendicitis. 2. Moderate volume of colonic stool, largest in volume in the right colon. See the Radiology Information System for this patient for the contrast type and quantity. Reading Radiologist - Enid Lynch Releasing Radiologist - Enid Lynch Dictation Date Time - 08/04/2018 14:19 Benefits Clerk - NA Narrative 08/04/2018 2:[address] ABDOMEN PELVIS W CONTRAST, 08/04/2018 12:34 PM, [facility] INDICATION: R10.31: Abdominal pain, right lower quadrant ADDITIONAL CLINICAL INFORMATION: Ordering Provider Reason for Exam: RLQ Pain Technologist Note: Additional: COMPARISON: Previous CT performed on 09/01/2012 TECHNIQUE: CT of the abdomen and pelvis was performed following intravenous contrast utilizing standard protocol. CT dose reduction technique was used, including Automated Exposure Control. FINDINGS: Liver: Liver is normally enhanced. Biliary system: Gallbladder is present. There is no intra or extrahepatic biliary ductal dilatation. Spleen: Spleen is within normal limits. Pancreas: Pancreas is within normal limits. GI System: Small bowel loops are normal in caliber. There is no evidence for bowel obstruction. There is a moderate volume of colonic stool. A normal appendix is seen. The terminal ileum is normal in appearance. System: Kidneys and adrenal glands are within normal limits. Urinary bladder appears grossly normal. Pelvis: Uterus and ovaries are identified. There is no suspicious adnexal process by CT. Peritoneal cavity: There is no significant free fluid or collection in the abdomen or pelvis. Vascular: Within normal limits. Lung bases: Lung bases are clear. There is no visualized pleural or pericardial effusion. Bones: No destructive osseous changes. Procedure Note Enid Lynch MD - 08/04/2018 CT ABDOMEN PELVIS W CONTRAST, 08/04/2018 12:34 PM, [facility] INDICATION: R10.31: Abdominal pain, right lower quadrant ADDITIONAL CLINICAL INFORMATION: Ordering Provider Reason for Exam: RLQ Pain Technologist Note: Additional: COMPARISON: Previous CT performed on 09/01/2012 TECHNIQUE: CT of the abdomen and pelvis was performed following intravenouscontrast utilizing standard protocol. CT dose reduction technique was used,including Automated Exposure Control. FINDINGS: Liver: Liver is normally enhanced. Biliary system: Gallbladder is present. There is no intra orextrahepatic biliary ductal dilatation. Spleen: Spleen is within normal limits. Pancreas: Pancreas is within normal limits. GI System: Small bowel loops are normal in caliber. There is no evidencefor bowel obstruction. There is a moderate volume of colonic stool. A normal appendix is seen. The terminal ileum is normal in appearance. System: Kidneys and adrenal glands are within normal limits. Urinary bladder appears grossly normal. Pelvis: Uterus and ovaries are identified. There is no suspiciousadnexal process by CT. Peritoneal cavity: There is no significant free fluid or collection inthe abdomen or pelvis. Vascular: Within normal limits. Lung bases: Lung bases are clear. There is no visualized pleural or pericardial effusion. Bones: No destructive osseous changes. IMPRESSION: 1. No evidence of acute intra-abdominal or pelvic disease process. Specifically, there is no evidence of bowel obstruction or appendicitis. 2. Moderate volume of colonic stool, largest in volume in the rightcolon. See the Radiology Information System for this patient for the contrasttype and quantity. Reading Radiologist - Enid Lynch Releasing Radiologist - Enid Lynch Dictation Date Time - 08/04/2018 14:19 Benefits Clerk - NA Nir Alcantar MD CT ORDERABLES * (ABNORMAL) LIPASE BLOOD (08/04/2018 12:17 PM CDT) Lipase 64(L) 73 - 393 units/L 08/04/2018 12:44 PM CDT [facility] Blood BLOOD SPECIMEN / Unknown No Charge Blood Draw / Unknown 08/04/2018 12:17 PM CDT 08/04/2018 12:19 PM CDT Nir Alcantar MD LAB - CHEMISTRY HERLINDA DUMONT Performing Organization Address City/[facility]/ZIP Co de Phone Number [address] * LACTIC ACID BLOOD (08/04/2018 12:17 PM CDT) Lactic Acid 0.7 0.4 - 2.0 mmol/L 08/04/2018 12:50 PM CDT [facility] Blood BLOOD SPECIMEN / Unknown No Charge Blood Draw / Unknown 08/04/2018 12:17 PM CDT 08/04/2018 12:19 PM CDT Nir Alcantar MD LAB - CHEMISTRY HERLINDA DUMONT Performing Organization Address [facility] Co de Phone Number [address] * URINALYSIS REFLEX TO MICROSCOPIC NO CULTURE (08/04/2018 11:46 AM CDT) Only the most recent of2 resultswithin the time period is included. Color YELLOW YELLOW 08/04/2018 12:04 PM CDT [facility] Clarity CLEAR CLEAR, VERY CLOUDY 08/04/2018 12:04 PM CDT [facility] Glucose Qualitative Urine NEGATIVE NEGATIVE 08/04/2018 12:04 PM CDT [facility] Bilirubin Urine NEGATIVE NEGATIVE 9 12:04 PM CDT [facility] Ketone Urine NEGATIVE NEGATIVE 08/04/2018 12:04 PM CDT [facility] Specific [place] Urine 1.020 1.005, <=1.005, 1.010, 1.015, 1.020, 1.025, 1.030 08/04/2018 12:04 PM CDT [facility] Blood Urine NEGATIVE NEGATIVE 08/04/2018 12:04 PM CDT [facility] pH Urine 6.5 5.0 - 8.0 08/04/2018 12:04 PM CDT [facility] Protein Qualitative Urine NEGATIVE NEGATIVE 08/04/2018 12:04 PM CDT [facility] Urobilinogen 0.2 0.2, 1.0 E.U./dL 08/04/2018 12:04 PM CDT [facility] Nitrite Urine NEGATIVE NEGATIVE 08/04/2018 12:04 PM CDT [facility] Leukocyte Esterase NEGATIVE NEGATIVE 08/04/2018 12:04 PM CDT [facility] Urine URINE SPECIMEN OBTAINED BY CLEAN CATCH PROCEDURE / Unknown Collection / Unknown 08/04/2018 11:46 AM CDT 08/04/2018 11:56 AM CDT Nir Alcnatar MD LAB - URINALYSIS ORD ERABLES Performing Organization Address City/State/[facility] [place] [address], [facility] * XR CHEST 2VW (08/03/2018 3:36 PM CDT) Anatomical Region Laterality Modality Chest Radiographic Zulema ging 08/03/2018 3:45 PM CDT Impressions 08/03/2018 3:46 PM CDT IMPRESSION: No evidence for acute cardiopulmonary disease. Quirino Radiologist Nir Clemons Radiologist Nir Clemons Dictation Date Time - 08/03/2018 15:45 Benefits Clerk - NA Narrative 08/03/2018 3:46 PM CDT XR CHEST 2VW, 08/03/2018 3:36 PM[facility]: R76.11: Positive PPD ADDITIONAL CLINICAL INFORMATION: Ordering Provider Reason for Exam: Technologist Note: +PPD skin test for employmentNo hx or chest complaintsWas vaccinated as a child Additional: None COMPARISON: None available at the time of dictation. TECHNIQUE: PA and lateral views of the chest are reviewed. FINDINGS: The cardiac silhouette and mediastinum are within normal limits. No acute infiltrates or effusions are demonstrated. The visualized osseous structures and soft tissues are within normal limits. Procedure Note Nir Tran MD - 08/03/2018 XR CHEST 2VW, 08/03/2018 3:36 PM, [facility] INDICATION: R76.11: Positive PPD ADDITIONAL CLINICAL INFORMATION: Ordering Provider Reason for Exam: Technologist Note: +PPD skin test for employmentNo hx or chestcomplaintsWas vaccinated as a child Additional: None COMPARISON: None available at the time of dictation. TECHNIQUE: PA and lateral views of the chest are reviewed. FINDINGS: The cardiac silhouette and mediastinum are within normal limits. No acute infiltrates or effusions are demonstrated. The visualized osseous structures and soft tissues are within normallimits. IMPRESSION: No evidence for acute cardiopulmonary disease. Reading Radiologist Nir Clemons Releasing Radiologist Nir Clemons Dictation Date Time - 08/03/2018 15:45 Benefits Clerk - NA Christina Chang APNP-CURATOR ZOOLOGICAL MUSEUM DIAGNOSTIC IMAGING O RDERABLES * BIOPSY TISSUE PANEL (01/13/2018 8:52 AM CDT) Case Report Surgical Pathology Report Case: [id number] Authorizing Provider: Jimbo Stovall MD Collected: 01/13/2018 08:52 AM Ordering Location: Main [facility] Received: 01/13/2018 11:10 AM [facility] Pathologist: Dennis Phillips MD Specimens: 1) - Tonsil(s), Right tonsil 2) - Tonsil(s), Left tonsil 01/14/2018 10:30 AM [facility] Final Diagnosis BILATERAL TONSILLECTOMY (1, 2): BENIGN TONSILLAR TISSUE WITH REACTIVE LYMPHOID HYPERPLASIA. 01/14/2018 10:30 AM T [facility] Clinical History None provided 01/14/2018 10:30 AM [facility] Microscopic Description 1, 2. H&E stained sections show tonsils covered by benign squamous mucosa. Reactive lymphoid hyperplasia is present, and there is no malignancy. 01/14/2018 10:30 AM [facility] Gross Description Specimen 1, right tonsil, in formalin is a 7.0 g pink-johnson piece of soft tissue partially covered with mucosa consistent with the clinical impression of tonsils, 3.7 x 2.3 x 1.7 cm. No abnormalities are grossly identified. Criminalist Technician sections are submitted in cassette 1A. Specimen 2, left tonsil, in formalin is a 6.0 g pink-johnson piece of soft tissue partially covered with mucosa consistent with the clinical impression of tonsils, 3.0 x 2.5 x 1.7 cm. No abnormalities are grossly identified. Criminalist Technician sections are submitted in cassette 2A. Mely Galan, 01/13/2018 at 4:35 PM 01/14/2018 10:30 AM CDT [facility] Miscellaneous samples (specimen) SPECIMEN FROM TONSIL / Unknown 01/13/2018 8:52 AM CDT 01/13/2018 3:21 PM CDT Jimbo Stovall MD LAB - PATHOLOGY/CYTO LOGY ORDERABLES [facility] [address] [id number] * (ABNORMAL) DIFFERENTIAL MANUAL (11/18/2017 1:05 PM CDT) Neutrophils % 60 44 - 75 % 11/18/2017 1:32 PM CDT [facility] Lymphocytes % 7(L) 17 - 45 % 11/18/2017 1:32 PM CDT [facility] Atypical Lymphocytes % 24(H) <=5 % 11/18/2017 1:32 PM CDT [facility] Monocytes % 8 4 - 13 % 11/18/2017 1:32 PM CDT [facility] Blasts % 1 <=1 % 11/18/2017 1:32 PM CDT [facility] Neutrophils Absolute 7.68(H) 1.70 - 7.60 10E3/uL 11/18/2017 1:32 PM CDT [facility] Blood specimen (specimen) BLOOD SPECIMEN / Unknown 11/18/2017 1:05 PM CDT 11/18/2017 1:10 PM CDT Argelia Pablo DO LAB - HEMATOLOGY ORD ERABLES [facility] [address] * CT NECK SOFT TISSUE W CONT (11/14/2017 1:15 PM CDT) Anatomical Region Laterality Modality Head Other Impressions 11/14/2017 1:19 PM CDT IMPRESSION: Enlargement of the adenoids and tonsils. No evidence for significant airway compromise. Multiple enlarged cervical lymph nodes bilaterally. Findings are consistent with the given diagnosis of mononucleosis. See the Radiology Information System for this patient for the contrast type and quantity. Reading Radiologist - Augustine Salas Releasing Radiologist - Augustine Salas Dictation Date Time - 11/14/2017 13:16 Benefits Clerk - NA Narrative 11/14/2017 1:[address] NECK SOFT TISSUE W CONT, 11/14/2017 1:15 PM[facility]: J04.0: Acute laryngitis E86.0: Dehydration ADDITIONAL CLINICAL INFORMATION: Ordering Provider Reason for Exam: Technologist Note: Acute laryngitisPositive mono test Additional: None COMPARISON: None available at the time of dictation. TECHNIQUE: CT of the neck was performed utilizing standard protocol. Thin section axial images obtained of the neck, with intravenous nonionic contrast. CT dose reduction technique was used, including Automated Exposure Control. IV CONTRAST: IOHEXOL 350 MG/ML IV SOLN:80 mL FINDINGS: There is a prominent enlargement of the adenoidal soft tissue. There is enlargement of the tonsils. Is minor airway compromise. The epiglottis is normal. The larynx is normal. The exam demonstrates very large lymph nodes in the cervical chains bilaterally. The largest nodes on the right and left measure nearly 4 cm in size. There are no findings of abscess formation. Limited views of the upper chest are unremarkable. Procedure Note Augustine Salas MD - 01/09/2018 CT NECK SOFT TISSUE W CONT, 11/14/2017 1:15 PM, [facility] INDICATION: J04.0: Acute laryngitis E86.0: Dehydration ADDITIONAL CLINICAL INFORMATION: Ordering Provider Reason for Exam: Technologist Note: Acute laryngitisPositive mono test Additional: None COMPARISON: None available at the time of dictation. TECHNIQUE: CT of the neck was performed utilizing standard protocol. Thin sectionaxial images obtained of the neck, with intravenous nonionic contrast. CT dose reduction technique was used, including Automated ExposureControl. IV CONTRAST: IOHEXOL 350 MG/ML IV SOLN:80 mL FINDINGS: There is a prominent enlargement of the adenoidal soft tissue. There is enlargement of the tonsils. Is minor airway compromise. The epiglottisis normal. The larynx is normal. The exam demonstrates very large lymph nodes in the cervical chains bilaterally. The largest nodes on the right and left measure nearly 4 cmin size. There are no findings of abscess formation. Limited views of the upper chest are unremarkable. IMPRESSION IMPRESSION: Enlargement of the adenoids and tonsils. No evidence for significantairway compromise. Multiple enlarged cervical lymph nodes bilaterally. Findings are consistent with the given diagnosis of mononucleosis. See the Radiology Information System for this patient for the contrasttype and quantity. Reading Radiologist - Augustine Salas Releasing Radiologist - Augustine Salas Dictation Date Time - 11/14/2017 13:16 Benefits Clerk - NA Penelope Zaragoza DO CT ORDERABLES * (ABNORMAL) CBC W/O DIFFERENTIAL (11/14/2017 10:15 AM CDT) WBC 13.3(H) 3.5 - 11.0 10E3/uL 11/14/2017 10:32 AM CDT [facility] RBC 4.82 3.80 - 5.40 10E6/uL 11/14/2017 10:32 AM T [facility] Hemoglobin 13.6 11.9 - 16.0 g/dL 11/14/2017 10:32 AM T [facility] Hematocrit 40.8 35.0 - 47.0 % 11/14/2017 10:32 AM T [facility] MCV 85 80 - 100 fL 11/14/2017 10:32 AM T [facility] MCH 28.2 26.0 - 34.0 PG 11/14/2017 10:32 AM T [facility] MCHC 33.3 31.0 - 37.0 g/dL 11/14/2017 10:32 AM T [facility] RDW 13.6 11.5 - 14.5 % 11/14/2017 10:32 AM [facility] Platelet Count 171 150 - 450 10E3/uL 11/14/2017 10:32 AM [facility] MPV 10.8(H) 6.5 - 10.0 FL 11/14/2017 10:32 AM [facility] Blood specimen (specimen) BLOOD SPECIMEN / Unknown 11/14/2017 10:15 AM CDT 11/14/2017 10:26 AM CDT Penelope Christensen Nik DO LAB - HEMATOLOGY ORD ERABLES [address] [address] * CT HEAD WO CONTRAST (08/21/2016 9:15 PM CDT) Anatomical Region Laterality Modality Head Other Impressions 08/21/2016 9:20 PM CDT IMPRESSION: No evidence of acute intracranial abnormality. Reading Radiologist - Galen Huang Releasing Radiologist - Galen Huang Dictation Date Time - 08/21/2016 21:19 Benefits Clerk - NA Narrative 08/21/2016 9:[address] BRAIN WO CONTRAST, 08/21/2016 9:00 PM, [facility] INDICATION: S09.90XA: Head injury, initial encounter ADDITIONAL CLINICAL INFORMATION: Ordering Provider Reason for Exam: Technologist Note: Hit in head with softball yesterday. Ball hit to temporal area R side. Increasing SINCLAIR and dizziness today. Denies vision or speech problems. No surg hx. No LOC Additional: None COMPARISON: None available at the time of dictation. TECHNIQUE: Axial images were acquired through the head without intravenous contrast. FINDINGS: Cisterns, sulci, and ventricles are symmetric without mass effect, hemorrhage, or intra or extra-axial fluid collection. Troncoso-white matter differentiation is maintained without evidence of acute infarct. Mastoid air cells and visualized paranasal sinuses are clear. Bones and extracranial soft tissues are unremarkable. Procedure Note Galen Huang MD - 04/17/2018 CT BRAIN WO CONTRAST, 08/21/2016 9:00 PM, [facility] INDICATION: S09.90XA: Head injury, initial encounter ADDITIONAL CLINICAL INFORMATION: Ordering Provider Reason for Exam: Technologist Note: Hit in head with softball yesterday. Ball hit totemporal area R side. Increasing SINCLAIR and dizziness today. Denies vision or speech problems. No surg hx. No LOC Additional: None COMPARISON: None available at the time of dictation. TECHNIQUE: Axial images were acquired through the head without intravenouscontrast. FINDINGS: Cisterns, sulci, and ventricles are symmetric without mass effect,hemorrhage, or intra or extra-axial fluid collection. Troncoso-white matterdifferentiation is maintained without evidence of acute infarct. Mastoid air cells and visualized paranasal sinuses are clear. Bones and extracranial soft tissues are unremarkable. IMPRESSION IMPRESSION: No evidence of acute intracranial abnormality. Reading Radiologist Galen Nixon Releasing Galen Lay Dictation Date Time - 08/21/2016 21:19 Benefits Clerk - NA Nir Alcantar MD CT ORDERABLES * XR FINGERS LEFT 2VW OR MORE (02/27/2015 5:36 PM ADULT PSYCHIATRIST) Anatomical Region Laterality Modality Upper Extremity, Wrist / Hand Ot her Impressions 02/28/2015 6:42 AM ADULT PSYCHIATRIST No fracture or malalignment. Reading Anastasia Black Laura Dictation Date Time - 02/28/2015 05:07 Benefits Clerk - NA Narrative 02/28/2015 6:42 AM ADULT PSYCHIATRIST XR FINGERS LEFT 2VW OR MORE, 02/27/2015 5:30 PM, [facility] INDICATION: S69.92XA: Unspecified injury of left wrist, hand and finger(s), initial encounter ADDITIONAL CLINICAL INFORMATION: Ordering Provider Reason For Exam: Technologist Note: Smashed 2nd and 3rd digit in garage door, distal phalange pain, small abrasion to 3rd digit at DIP joint Additional: None COMPARISON: None available at the time of dictation. TECHNIQUE: Three views with attention to the left fingers are reviewed. FINDINGS: Skeletally immature patient. There is no fracture or malalignment. No radiopaque foreign bodies. No significant soft tissue swelling. Procedure Note Anastasia Villaseñor MD - 02/24/2018 XR FINGERS LEFT 2VW OR MORE, 02/27/2015 5:30 PM[facility]: S69.92XA: Unspecified injury of left wrist, hand and finger(s), initial encounter ADDITIONAL CLINICAL INFORMATION: Ordering Provider Reason For Exam: Technologist Note: Smashed 2nd and 3rd digit in garage door, distalphalange pain, small abrasion to 3rd digit at DIP joint Additional: None COMPARISON: None available at the time of dictation. TECHNIQUE: Three views with attention to the left fingers are reviewed. FINDINGS: Skeletally immature patient. There is no fracture or malalignment. No radiopaque foreign bodies. No significant soft tissue swelling. IMPRESSION No fracture or malalignment. Reading Anastasia Black Releasing Anastasia Black Dictation Date Time - 02/28/2015 05:07 Benefits Clerk - NA Rian Leal MD DIAGNOSTIC IMAGING O RDJUDITH * XR WRIST LEFT 3VW OR MORE (09/05/2014 12:02 PM CDT) Anatomical Region Laterality Modality Wrist / Hand Other Impressions 09/05/2014 2:24 PM CDT Negative left wrist Reading William Rush Todd Dictation Date Time - 09/05/2014 14:24 Benefits Clerk - NA Narrative 09/05/2014 2:24 PM CDT XR WRIST LEFT 3VW OR MORE, 09/05/2014 11:54 AM, [facility] INDICATION: 719.43: Pain in joint, forearm ADDITIONAL CLINICAL INFORMATION: Ordering Provider Reason for Exam: Technologist Note: Injured playing softball 3 days ago Pain throughout wrist . Additional: None. COMPARISON: None available at the time of dictation. FINDINGS: No fracture or dislocation identified Procedure Note William Reyes MD - 02/27/2018 XR WRIST LEFT 3VW OR MORE, 09/05/2014 11:54 AM, [facility] INDICATION: 719.43: Pain in joint, forearm ADDITIONAL CLINICAL INFORMATION: Ordering Provider Reason for Exam: Technologist Note: Injured playing softball 3 days ago Pain throughoutwrist . Additional: None. COMPARISON: None available at the time of dictation. FINDINGS: No fracture or dislocation identified IMPRESSION Negative left wrist Reading William Rush Todd Dictation Date Time - 09/05/2014 14:24 Benefits Clerk - NA Darío Barker MD DIAGNOSTIC IMAGING O RDERABLES Care Teams Treatment Specialist Relationship Specialty Start Date End Date Penelope Zaragoza DO [address] [place] [address] PCP - General 01/08/18 Penelope Zaragoza DO [address] [place] [address] PCP - Attributed-DHP Commercial 04/28/22
--- OUTSIDE RECORDS SUMMARY | 2024-05-12 17:08 | XMS_ITS | Referral Summary ---
Author Organization [facility] Address [address] [place] [address] Care Team Providers Care Dinkey Locomotive Operator Name Role Phone Penelope Zaragoza DO Primary Care Provider Penelope Zaragoza DO Unavailable Source Comments [facility],non-owned Affiliates and Associated Physician Practices is amultiple site organization consisting of ambulatory clinics and hospital sitesin [place], [place], [place] and [place]. This disclosure is being madepursuant to the Care Everywhere program and may not contain all information available regarding this patient. Last updated 18.[facility] Encounters Date Type Department Care Team Description 04/26/2024 Refill [facility] - Family Medicine [address] [place] [id number] Penelope Zaragoza DO Refill Request from Last 3 Months Allergies No known active allergies Medications * [...] 09/16/2018 Oppositional defiant disorder 01/13/2012 09/22/2018 Immunizations Name Administration Dates Next Due DTaP VACCINE IM (6wk-6yrs) 01/18/2005,,09/15/2000,05/20/2000, 1999 HEP B VACCINE, PED/ADOL 05/20/2000,1999, HIB-PRP-OMP 3 DOSE 12/26/2000,09/15/2000, 001,1999 MENINGOCOCCAL CONJUGATE (MCV4P) 11/30/2015 MMR 01/18/2005,09/15/2000 MMR-Historical 09/15/2000 PNEUMOCOCCAL PCV7 CONJ, PEDS 05/20/2000 POLIO IPV 12/26/2000,09/15/2000,05/20/2000 ,1999 TDAP (7yrs+) 04/17/2021,02/04/2011 Social History Tobacco Use Types Packs/Day Years [...] place to sleep or slept in a penitentiary (including now)? No 04/04/2023 Sex and Gender Information Value Date Recorded Sex Assigned at Not on file Gender Identity Not on file Sexual Orientation Not on file Last Filed Vital Signs Vital Sign Reading Time Taken Comments Blood Pressure 100/70 12/24/2023 10:01 AM CDT Pulse 86 12/24/2023 10:01 AM CDT Temperature 36.6 C (97.8 F) 06/11/2023 4:36 PM STEAM FITTER HELPER Respiratory Rate 18 12/24/2023 10:0 1 AM CDT Oxygen Saturation 98% 12/24/2023 10: 01 AM CDT Inhaled Oxygen Concentration - - Weight 80.2 kg (176 lb 12.8 oz) 024 10:01 AM CDT Height 166 cm (5' 5.35) 04/04/2023 2:31 PM STEAM FITTER HELPER Body Mass Index 29.1 04/04/2023 2:31 PM STEAM FITTER HELPER Plan of Treatment Not on file Procedures Procedure Name Priority Date/Time Associated Diagnosis Comments PAP THINPREP REFLEX HPV ([place]) Routine 04/04/2023 2:30 PM STEAM FITTER HELPER Cervical cancer screening CHLAMYDIA+GC AMPLIFIED PROBE ([facility]) Routine 04/04/2023 2:30 PM STEAM FITTER HELPER Screening examination for STD (sexually transmitted disease) from Last 3 Months or Most Recently Relevant to Health Maintenance Results * CHLAMYDIA+GC AMPLIFIED PROBE ([facility]) (04/04/2023 2:30 PM STEAM FITTER HELPER) Neisseria gonorrhoeae PCR NOT DETECTED NOT DETECTED 04/04/2023 6:55 PM STEAM FITTER HELPER [facility] Chlamydia trachomatis PCR NOT DETECTED NOT DETECTED 04/04/2023 6:55 PM STEAM FITTER HELPER [facility] Microbiology URINE / Unknown Collection / Unknown 04/04/2023 2:30 PM STEAM FITTER HELPER 04/04/2023 3:09 PM STEAM FITTER HELPER [facility] - 04/04/2023 6:55 PM STEAM FITTER HELPER The assay is a qualitative in vitro [...] Zaragoza DO LAB - MICROBIOLOGY O RDERABLES [address] [address] * PAP THINPREP REFLEX HPV ([place]) (04/04/2023 2:30 PM STEAM FITTER HELPER) CASE REPORT Gynecologic Cytology Report Case: [id number] Authorizing Provider: Penelope Zaragoza DO Collected: 04/04/2023 02:30 PM Ordering Location: [facility] Received: 04/04/2023 03:[address] [facility] ([place], [place]) First Screen: Wayne Booth CT(ASCP) Rescreen: Henry Santiago CT(ASCP) Specimen: THIN PREP PAP VIAL ([place]), Cervix/Endocervix 04/15/2023 10:22 AM [facility] LMP 03/27/2023 04/15/2023 10:22 AM [facility] Clinical History None Applicable 10:22 AM [facility] Specimen Adequacy Satisfactory for evaluation. Transformation zone component is present. 04/15/2023 10:22 AM [facility] Categorization Negative for intraepithelial lesion or malignancy. 04/15/2023 10:22 AM [facility] Interpretation Negative for intraepithelial lesion or malignancy. 04/15/2023 10:22 AM [facility] (S) Two ThinPrep slides were prepared and evaluated. One of the two slides was processed with Glacial Acetic Acid (GAA). 04/15/2023 10:22 AM [facility] Recommendations Clinical correlation recommended, with follow-up as directed by current ASCCP risk-based management consensus guidelines. 04/15/2023 10:22 AM [facility] Footnote Cervical cytology is a screening test with limited sensitivity. It is not a diagnostic procedure and should not be used as the sole means to detect cervical cancer, especially in patients with symptoms or an abnormal cervix. Regular screening is critical for cancer prevention. 04/15/2023 10:22 AM [facility] EMBEDDED IMAGES 10:22 AM [facility] Pathology/Cytolo gy MISCELLANEOUS SAMPLES / Unknown Collection / Unknown 04/04/2023 2:30 PM STEAM FITTER HELPER 04/04/2023 3:09 PM STEAM FITTER HELPER Penelope Zaragoza DO LAB - BODY FLUID ORD ERABLES [facility] [address] from Last 3 Months or Most Recently Relevant to Health Maintenance Care Teams Dinkey Locomotive Operator Relationship Specialty Start Date End Date Penelope Zaragoza DO [address] [place], [place] [id number] PCP - General 01/08/18 Penelope Zaragoza DO [address] [place] [address] PCP - Attributed-DHP Commercial 04/28/22
[2024-05-12 17:43] LABS: Albumin* 4.1 g/dL (3.3-5.0); Chloride* 103 mmol/L (96-114)
[2024-05-12 17:44] LABS: Potassium* 3.9 mmol/L (3.6-5.1); Sodium* 133 mmol/L (135-149)
[2024-05-12 17:46] LABS: Creatinine* 0.6 mg/dL (0.5-1.5); Estimated Glomerular Filt Rate 128 ml/min
[2024-05-12 17:47] LABS: Alanine Aminotransferase* 12 U/L (4-35); Alkaline Phosphatase* 100 U/L (40-150); Anion Gap 6 mEq/L (7-15); Aspartate Amino Transferase* 18 U/L (12-35); Bilirubin Direct* 0.3 mg/dL (0.0-0.5); Bilirubin Total* 0.8 mg/dL (0.1-1.5); Blood Urea Nitrogen* 8 mg/dL (5-24); Calcium* 9.1 mg/dL (8.4-10.6); Carbon Dioxide* 24 mmol/L (20-32); Glucose* 82 mg/dL (60-115); Lipase* 30 U/L (23-300); Total Protein* 7.4 g/dL (6.0-8.3)
[2024-05-12 17:49] LABS: C Reactive Protein* 1.2 mg/dL (0.5-1.0)
[2024-05-12 18:01] LABS: Strep A DNA Probe* NOT DETECTED (Not Detectd)
[2024-05-12 18:13] LABS: PCR FLU A Negative PCR FLU A (Negative); PCR FLU B Negative PCR FLU B (Negative); PCR RSV Negative PCR RSV (Negative); SARS PCR* Negative SARS-CoV-2 (Negative)
[2024-05-12] MEDS: ONDANSETRON 2 MG/ML inj 4 MG IVP (18:51)
== END 2024-05-12 19:47 | disposition home or self-care (01) ==
PROVIDERS: Emergency Provider Emergency Medicine
DX: R10.9 Unspecified abdominal pain (principal); R11.0 Nausea; R10.31 Right lower quadrant pain
CPT/HCPCS: 36415; 74177; 80048; 80076; 83690; 86140; 87631; 87651; 96374; 99284; J2405; Q9967